=== PATIENT | male | born 1985 | race Caucasian/White ===

== ENCOUNTER 2017-03-20 23:45 | Emergency (ER) | payer MEDICAID ==
[~2017-03-20] VITALS: Ht 170.2 cm; Wt 65.0 kg
[~2017-03-20 23:45] MED LIST: ACID1TAB7 PO; AMLO10TA4 PO; CEPH-376 PO; CLIN300C93 PO; HYDR-3138 PO; LABE100T3 PO; LISI-170 PO; SULF1TAB24 PO
[2017-03-21] MEDS ORDERED: LABETALOL 5MG/ML, 20ML IVPush ONE (00:30)
[2017-03-21] MEDS ORDERED: SODIUM CHLORIDE FLUSH 10ML SYR IVF ONE (00:30)
[2017-03-21] MEDS ORDERED: NITROGLYCERIN OINT 2%, 1GM TP ONE ×2 (00:30→00:54)
[2017-03-21] MEDS ORDERED: LABETALOL 5MG/ML, 20ML ONE (00:54)
[2017-03-21 01:00] LABS: BLOOD UREA NITROGEN 8 mg/dL (7-18)
[2017-03-21 01:04] LABS: IS PT STATUS REG ER OR PRE ER? YES
[2017-03-21] MEDS ORDERED: ONDANSETRON ODT 4 MG PO ONE (02:00)
[2017-03-21] MEDS ORDERED: IBUPROFEN 200 MG TABLET PO ONE (02:00)
[2017-03-21] MEDS ORDERED: IBUPROFEN 200 MG TABLET ONE (02:02)
[2017-03-21] MEDS ORDERED: ONDANSETRON ODT 4 MG ONE (02:02)
[2017-03-21 02:20] VITALS: BP 148/95
== END 2017-03-21 02:39 | disposition home or self-care (01) ==
LOC: ED 23:59
DX: R51 Headache (principal); I10 Essential (primary) hypertension
CPT/HCPCS: 36415; 80048; 82040; 84484; 85025; 93005; 96374; 99285; Q0162; 96372

== ENCOUNTER 2017-07-10 19:46 | Inpatient (IN) | payer MEDICAID ==
[~2017-07-10] VITALS: Ht 170.2 cm; Wt 62.5 kg
[~2017-07-10 19:46] MED LIST changes: +CLIN300C8 PO; -CLIN300C93 PO; -HYDR-3138 PO; +HYDR-3237 PO
[2017-07-10] MEDS ORDERED: ONDANSETRON 2MG/ML, 2ML IVPush ONE (20:30)
[2017-07-10] MEDS ORDERED: SODIUM CHLORIDE FLUSH 10ML SYR IVF ONE (20:30)
[2017-07-10] MEDS ORDERED: SODIUM CHLORIDE 0.9% 1,000ML IVBOLUS ONE (20:30)
[2017-07-10] MEDS ORDERED: HYDROmorphone 1 MG/ML, 1ML ONE ×2 (20:37→22:47)
[2017-07-10] MEDS ORDERED: ONDANSETRON 2MG/ML, 2ML ONE (20:37)
[2017-07-10 20:43] LABS: HEMATOCRIT 39.5 % (39.2-51.8); HEMOGLOBIN 13.4 g/dL (13.7-18.0); WHITE BLOOD COUNT 6.6 x10^3/uL (3.4-10)
[2017-07-10] MEDS: HYDROmorphone 1 MG/ML, 1ML IVPush PRN ×2 (20:45→22:50)
[2017-07-10 20:53] LABS: BLOOD UREA NITROGEN 8 mg/dL (7-18)
[2017-07-10] MEDS ORDERED: OMNIPAQUE 350 MG/ML, 100ML BOTTLE ONE (20:58)
[2017-07-10] MEDS ORDERED: CLINDAMYCIN PMX 900MG/50ML 50 ML IV ONE (22:30)
[2017-07-10] MEDS ORDERED: hydrALAzine 20 MG/ML, 1ML ONE (22:39)
[2017-07-10] MEDS ORDERED: CLIN300C8 PO (22:45)
[2017-07-10] MEDS ORDERED: CHLO473M PO (22:45)
[2017-07-10] MEDS ORDERED: HYDR-3240 PO (22:45)
[2017-07-10] MEDS ORDERED: CLINDAMYCIN PMX 900MG/50ML 50 ML ONE (22:47)
[2017-07-10] MEDS ORDERED: hydrALAzine 20 MG/ML, 1ML IV ONE (23:00)
[2017-07-10 23:13] VITALS: BP 162/125
[2017-07-11] MEDS ORDERED: ENALAPRILAT 1.25 MG/ML, 2ML IVPush PRN
[2017-07-11] MEDS ORDERED: HYDROmorphone 2 MG/ML, 1ML IVPush PRN
[2017-07-11] MEDS ORDERED: hydrALAzine 20 MG/ML, 1ML IVPush PRN
[2017-07-11] MEDS ORDERED: ONDANSETRON 2MG/ML, 2ML IVPush PRN
[2017-07-11] MEDS ORDERED: DOCUSATE 100 MG CAPSULE PO PRN
[2017-07-11] MEDS ORDERED: TEMAZEPAM 15 MG CAPSULE PO PRN
[2017-07-11] MEDS ORDERED: ACETAMINOPHEN 325 MG TABLET PO PRN
[2017-07-11 00:26] VITALS: BP 176/104
[2017-07-11 01:09] VITALS: BP 164/98
[2017-07-11] MEDS: ENOXAPARIN 40 MG/0.4 ML SQ SCH (01:10)
[2017-07-11] MEDS: CLINDAMYCIN PMX 600MG/50ML 50 ML IV SCH ×4 (04:42→22:32)
[2017-07-11 05:16] LABS: HEMATOCRIT 40.6 % (39.2-51.8); HEMOGLOBIN 13.8 g/dL (13.7-18.0); WHITE BLOOD COUNT 12.5 x10^3/uL (3.4-10)
[2017-07-11 05:26] LABS: BLOOD UREA NITROGEN 7 mg/dL (7-18)
[2017-07-11 07:55] VITALS: BP 159/106
[2017-07-11] MEDS: LACTOBACILLUS 1GM/ PACKET PO SCH ×3 (08:11→22:31)
[2017-07-11] MEDS: LISINOPRIL 20 MG TABLET PO SCH (08:11)
[2017-07-11 13:17] VITALS: BP 145/96
[2017-07-11 21:13] VITALS: BP 156/97
[2017-07-12 01:32] VITALS: BP 155/96
[2017-07-12] MEDS: ENOXAPARIN 40 MG/0.4 ML SQ SCH (01:33)
[2017-07-12] MEDS: CLINDAMYCIN PMX 600MG/50ML 50 ML IV SCH ×2 (04:34→10:51)
[2017-07-12 05:43] LABS: HEMATOCRIT 39.8 % (39.2-51.8); HEMOGLOBIN 13.7 g/dL (13.7-18.0); WHITE BLOOD COUNT 7.1 x10^3/uL (3.4-10)
[2017-07-12 06:07] LABS: BLOOD UREA NITROGEN 11 mg/dL (7-18)
[2017-07-12 06:37] VITALS: BP_SYST 134; BP_SYST 152; BP_DIAS 112; BP_DIAS 85
[2017-07-12] MEDS: LISINOPRIL 20 MG TABLET PO SCH (09:27)
[2017-07-12] MEDS: LACTOBACILLUS 1GM/ PACKET PO SCH (09:27)
[2017-07-12] MEDS ORDERED: CLIN300C8 PO (12:06)
[2017-07-12] MEDS ORDERED: LISI-170 PO (12:06)
[2017-07-12] MEDS ORDERED: ACET325T14 PO (12:06)
[2017-07-12] MEDS ORDERED: LACT1CAP24 PO (12:09)
== END 2017-07-12 13:10 | disposition home or self-care (01) | DRG 158 ==
LOC: ED 20:20 → EDIP 22:25 → 4NOR 23:10 → DCLOUNGE 07-12 12:50
PROVIDERS: ADMIT Family Medicine; ATTEND Family Medicine
DX: K04.7 Periapical abscess without sinus (principal); E44.1 Mild protein-calorie malnutrition; F12.90 Cannabis use, unspecified, uncomplicated; S20.219A Contusion of unspecified front wall of thorax, initial encounter; F17.210 Nicotine dependence, cigarettes, uncomplicated; I10 Essential (primary) hypertension; I16.0 Hypertensive urgency; Z82.49 Family history of ischemic heart disease and other diseases of the circulatory system; Z68.21 Body mass index [BMI] 21.0-21.9, adult
CPT/HCPCS: 36415; 70491; 80048; 82040; 83605; 85025; 87040; 96361; 96374; 96375; 96376; J1170; J1650; J2405; Q9967; J0360; J7030

== ENCOUNTER 2018-05-10 00:02 | Emergency (ER) | payer MEDICAID ==
[~2018-05-10] VITALS: Ht 170.2 cm; Wt 60.9 kg
[~2018-05-10 00:02] MED LIST changes: +ACET325T14 PO; +CHLO473M PO; +HYDR-3240 PO; -LABE100T3 PO; +LABE100T6 PO; +LACT1CAP24 PO
[2018-05-10] MEDS ORDERED: KETOROLAC 30 MG/1 ML IVPush ONE (00:30)
[2018-05-10] MEDS ORDERED: SODIUM CHLORIDE 0.9% 1,000ML IVBOLUS ONE (00:30)
[2018-05-10] MEDS ORDERED: SODIUM CHLORIDE FLUSH 10ML SYR IVF ONE (00:30)
[2018-05-10 00:45] LABS: BASOPHILS # (AUTO) 0.05 x10^3/uL (0-0.1); BASOPHILS % (AUTO) 1 % (0-1); EOSINOPHILS # (AUTO) 0.23 x10^3/uL (0-0.4); EOSINOPHILS % (AUTO) 3 % (1-7); HCT (SEDRATE) 39.7 % (39.2-51.8); LYMPHOCYTES # (AUTO) 1.71 x10^3/uL (1-3.4); LYMPHOCYTES % (AUTO) 19 % (22-44); MD NO; MEAN CORPUSCULAR HEMOGLOBIN 27.6 pg (27.5-34.5); MEAN CORPUSCULAR HGB CONC 33.1 g/dL (33.2-36.2); MEAN CORPUSCULAR VOLUME 83.4 fL (81-97); MEAN PLATELET VOLUME 8.1 fL (7.4-10.4); MONOCYTES # (AUTO) 0.86 x10^3/uL (0.2-0.8); MONOCYTES % (AUTO) 10 % (2-9); NEUTROPHILS # (AUTO) 6.24 x10^3/uL (1.8-6.8); NEUTROPHILS % (AUTO) 69 % (42-75); PLATELET COUNT 306 x10^3/uL (130-400); RED BLOOD COUNT 4.76 x10^6/uL (4.38-5.82); RED CELL DISTRIBUTION WIDTH 15.5 % (9.4-14.8)
[2018-05-10] MEDS ORDERED: KETOROLAC 30 MG/1 ML ONE (00:52)
[2018-05-10 00:57] LABS: ANION GAP 4 mmol/L (5-15); CALCIUM 8.4 mg/dL (8.5-10.1); CHLORIDE 104 mmol/L (98-107); CREATININE 1.03 mg/dL (0.7-1.3)
[2018-05-10 00:58] LABS: ALBUMIN 3.7 g/dL (3.4-5.0)
[2018-05-10 01:02] LABS: C-REACTIVE PROTEIN, QUANT < 0.02 mg/dL (0.02-0.49)
[2018-05-10 01:45] VITALS: BP 170/116
== END 2018-05-10 02:01 | disposition home or self-care (01) ==
LOC: ED 01:55
DX: M70.41 Prepatellar bursitis, right knee (principal); I10 Essential (primary) hypertension; F17.200 Nicotine dependence, unspecified, uncomplicated
CPT/HCPCS: 36415; 73564; 80048; 82040; 84550; 85025; 85651; 86140; 96374; 99285; J1885; J7030

== ENCOUNTER 2020-10-22 17:13 | Emergency (ER) | payer MEDICAID, OTHER ==
[~2020-10-22] VITALS: Ht 170.2 cm; Wt 63.5 kg
[~2020-10-22 17:13] MED LIST changes: -CLIN300C8 PO; +CLIN300C9 PO; +HYDR-1067 PO; -HYDR-3240 PO
--- NOTE | 2020-10-22 17:33 | NUR ---
PT IS A 35M COMPLAINING OF HEMATURIA SINCE LAST NIGHT. DENIES ANY TRAUMA TO ABDOMEN OR BACK. STATES HE HAS HAD SOME URINE HESITANTLY RECENTLY AND NOW THE HEMATURIA. NO PAIN ASSOCIATED. URINE SAMPLE OBTAINED. PT ALSO STATES HE USED METH 4 HOURS AGO. HR 117 BP 163/115' NO ADDITIONAL NEEDS AT THIS TIME. CALL LIGHT WITHIN REACH
[2020-10-22 18:25] LABS: BASOPHILS % (AUTO) 1 % (0-1); EOSINOPHILS % (AUTO) 4 % (1-7); LYMPHOCYTES % (AUTO) 25 % (22-44); MEAN CORPUSCULAR HGB CONC 34.5 g/dL (33.2-36.2); MEAN PLATELET VOLUME 8.3 fL (7.4-10.4); MONOCYTES % (AUTO) 9 % (2-9); NEUTROPHILS % (AUTO) 61 % (42-75); PLATELET COUNT 273 x10^3/uL (130-400); RED BLOOD COUNT 4.98 x10^6/uL (4.38-5.82)
[2020-10-22] MEDS ORDERED: LIDOCAINE 2%,20 ML JEL.PF.APP MM ONE (18:26)
[2020-10-22 18:27] LABS: MD NO
[2020-10-22] MEDS ORDERED: OMNIPAQUE 350 MG/ML, 100ML BOTTLE ONE (18:30)
[2020-10-22 18:33] LABS: INTERNATIONAL NORMALIZED RATIO 1.02 (0.93-1.1); PROTHROMBIN TIME 10.8 Seconds (9.6-11.5)
[2020-10-22 18:36] LABS: ALBUMIN 3.7 g/dL (3.4-5.0); CALCIUM 8.4 mg/dL (8.5-10.1); CHLORIDE 109 mmol/L (98-107)
[2020-10-22 18:39] LABS: ALANINE AMINOTRANSFERASE 21 U/L (12-78); ALKALINE PHOSPHATASE 93 U/L (45-117); BILIRUBIN,TOTAL 0.4 mg/dL (0.2-1.0); CREATININE 1.01 mg/dL (0.7-1.3); TOTAL PROTEIN 6.8 g/dL (6.4-8.2)
[2020-10-22 18:45] LABS: ANION GAP 7 mmol/L (5-15)
--- NOTE | 2020-10-22 19:00 | NUR ---
Placed 3way cath, noted to have bright to dark red urine. No clots noted. turned on irrigation noted to run pink to clear within the first 5 mins. Patient tolerated well but stated that he wanted it out. Provider aware
--- NOTE | 2020-10-22 19:01 | NUR ---
report to shantel arce
[2020-10-22 19:03] LABS: MICROSCOPIC INDICATED
--- NOTE | 2020-10-22 19:43 | NUR ---
3 way cath clamped offer per Dr. Jacobsen. Will recheck in half hour to see output and color.
[2020-10-22 20:03] VITALS: BP 159/98
== END 2020-10-22 20:05 | disposition home or self-care (01) ==
LOC: ED 20:00
DX: R31.0 Gross hematuria (principal); I10 Essential (primary) hypertension; F17.210 Nicotine dependence, cigarettes, uncomplicated
CPT/HCPCS: 36415; 51702; 74177; 80053; 81001; 85025; 85610; 85730; 87086; 99285; 99406; Q9967

== ENCOUNTER 2021-03-13 19:24 | Emergency (ER) | payer MEDICAID ==
[~2021-03-13] VITALS: Ht 170.2 cm; Wt 65.0 kg
[~2021-03-13 19:24] MED LIST changes: -HYDR-1067 PO; +HYDR-2214 PO; +SULF-23 PO; -SULF1TAB24 PO
--- NOTE | 2021-03-13 19:35 | NUR ---
Pt just voided, gave urine cup instructed to wait hour before attempting to void.
[2021-03-13] MEDS ORDERED: CEFTRIAXONE 1,000 MG ONE (20:18)
[2021-03-13] MEDS ORDERED: DOXYCYCLINE 100MG TABLET ONE (20:19)
[2021-03-13] MEDS ORDERED: DOXYCYCLINE 100MG TABLET PO ONE (20:30)
[2021-03-13] MEDS ORDERED: CEFTRIAXONE 1,000 MG IM ONE (20:30)
[2021-03-13 20:45] VITALS: BP 181/130
== END 2021-03-13 21:01 | disposition home or self-care (01) ==
LOC: ED 19:35
DX: N34.2 Other urethritis (principal); R30.0 Dysuria; F17.210 Nicotine dependence, cigarettes, uncomplicated; F15.10 Other stimulant abuse, uncomplicated; Z72.9 Problem related to lifestyle, unspecified; I10 Essential (primary) hypertension
CPT/HCPCS: 87491; 87591; 96372; 99283; 99406; J0696